=== PATIENT | female | born 1950 | race Caucasian/White ===

== ENCOUNTER 2019-08-20 12:07 | Emergency (ER) | payer MEDICARE, OTHER ==
--- NOTE | 2019-08-20 12:17 | ER Document Report ---
ED Medical Screen (RME) - General Chief Complaint: Shoulder Pain Stated Complaint: FALL/RIGHT SHOULDER INJURY Time Seen by Provider: 08/20/19 12:11 Primary Care Provider: PEDRO MARTINEZ PA-C [Primary Care Provider] - Follow up as needed Mode of Arrival: Ambulatory Information source: Patient Notes: 69-year-old female presents to ED for complaint of right shoulder pain. She states she fell a week ago and she is continued to have pain that is getting worse. She states she was sitting on the toilet and fell into the bathtub last Wednesday. She states she actually fell 3 times last Wednesday from losing her balance. She states she has been unsteady on her feet all week until yesterday. She states she has been too confused to know how to call 911 until yesterday. She states it took her 3 days to figure out how to put a shirt on. She states yesterday she is started being able to walk normal and not as dizzy as she states she is not really sure when she hurt her shoulder. She states she has a history of high blood pressure and cholesterol, hypothyroid diabetes she has had a hysterectomy tonsillectomy and that is while she knows. Patient states she does not smoke drink or use any drugs. I have greeted and performed a rapid initial assessment of this patient. A comprehensive ED assessment and evaluation of the patient, analysis of test resu lts and completion of medical decision making process will be conducted by an additional ED providers. TRAVEL OUTSIDE OF THE [place] IN LAST 30 DAYS: No - Related Data Allergies/Adverse Reactions: No Known Allergies Allergy (Unverified 08/20/19 12:12) Doctor's Discharge - Discharge Referrals: PEDRO MARTINEZ PA-C [Primary Care Provider] - Follow up as needed
--- NOTE | 2019-08-20 12:55 | ER Document Report ---
ED General - General Chief Complaint: Fall Stated Complaint: FALL/RIGHT SHOULDER INJURY Time Seen by Provider: 08/20/19 12:11 Primary Care Provider: PEDRO MARTINEZ PA-C [Primary Care Provider] - Follow up as needed KIKI DANIEL MD [ACTIVE STAFF] - Follow up tomorrow (Concern for rotator cuff injury patient unable to flex shoulder, AP lateral and Y view xr wnl, n/V exam wnl ) Mode of Arrival: Ambulatory TRAVEL OUTSIDE OF THE [place] IN LAST 30 DAYS: No - HPI Notes: 69F presents to ED for increasingly falling in past week, and progressive R shoulder pain 2/2 one fall ~1 w/a while attempting to sit down onto toilet fell off to R hitting RUE on bathtub. In fact, it was that day she was particularly off balance and fell a total 3 times, and now in interim has cont to feel unsteady upon standing like she might topple over, hasn't noticed specific laterality. today and yesterday upright imbalance seems actually much improved. she lives at home by herself for many years, but sister brings her in today s/p finding her fearful of ambulating in her home and more confused than usual, "slow to answer, find her words. pt had told staff she didn't come on her own since she was unsure of how to call 911; sister says, something she would usually have no issue w/. not on any AC/AP meds. R shoulder seems more stiff w/ persistent pain predominantly w/ any movement of R shoulder. denies any distal/other focal neuro deficits. w/ "feeling off balance" denies any double vision, neck or head pain, vomiting, other vision changes, or focal ataxia. She states she has been too confused to know how to call 911 until yesterday. denies urinary or bowel complaints, f/c/s/n/d. - Related Data Allergies/Adverse Reactions: No Known Allergies Allergy (Unverified 08/20/19 12:12) Past Medical History - General Information source: Patient, Relative - sister, but mostely supplied by pt. - Social History Smoking Status: Never Smoker Chew tobacco use (# tins/day): No Frequency of alcohol use: None Drug Abuse: None Lives with: Alone Family History: Reviewed & Not Pertinent Patient has suicidal ideation: No Patient has homicidal ideation: No Review of Systems - Review of Systems Constitutional: No symptoms reported EENT: No symptoms reported. denies: Vertigo Cardiovascular: No symptoms reported. denies: Chest pain, Palpitations, Heart racing, Orthopnea, Dyspnea, Syncope, Dizziness, Lightheaded, Edema, Paroxysmal Nocturnal Dysp Respiratory: No symptoms reported. denies: Cough, Hurts to breathe, Hemoptysis, Short of breath, Wheezing Gastrointestinal: No symptoms reported. denies: Abdominal pain, Diarrhea, Nausea, Vomiting, Constipation, Blood streaked bowels, Poor appetite, Poor fluid intake, Black stools, Rectal bleeding, Fecal incontinence Genitourinary: No symptoms reported Female Genitourinary: No symptoms reported Musculoskeletal: See HPI, Joint pain, Muscle stiffness. denies: Back pain, Neck pain, Deformity, Leg swelling, Ankle swelling Skin: No symptoms reported. denies: Change in color Hematologic/Lymphatic: No symptoms reported Neurological/Psychological: No symptoms reported Physical Exam - Vital signs Vitals: Temp Pulse Resp BP Pulse Ox 97.4 F 86 16 153/93 H 96 08/20/19 12:16 08/20/19 12:16 08/20/19 12:16 08/20/19 12:16 08/20/19 12:16 Interpretation: Normal - General General appearance: Appears well, Alert In distress: None - HEENT Head: Normocephalic, Atraumatic. No: Abrasions, Guerrero's sign, Ecchymosis, Open wounds, Tenderness Eyes: Normal. No: Pale conjunctiva, Periorbital ecchymosis, Periorbital edema, Scleral icterus Conjunctiva: No: Injected Extraocular movements intact: Yes Pupils: PERRL Nerve palsy: No Visual osborne normal: Yes Ears: Normal External canal: Normal Tympanic membrane: Normal. No: Hemotympanum, Perforation Nasal: Normal Mouth/Lips: Normal Mucous membranes: Dry Pharynx: Normal Neck: Normal, Supple. No: Carotid bruit, Lymphadenopathy, Neck mass, Subcutaneous emphysema, Thyromegally - Respiratory Respiratory status: No respiratory distress Chest status: Nontender Breath sounds: Normal Chest palpation: Normal - Cardiovascular Rhythm: Regular Heart sounds: Normal auscultation Murmur: No - Abdominal Inspection: Normal Distension: No distension Bowel sounds: Normal Tenderness: Nontender Organomegaly: No organomegaly - Back Back: Normal, Nontender - Extremities General upper extremity: Normal color General lower extremity: Normal inspection, Nontender, Normal color, Normal ROM, Normal temperature, Normal weight bearing. No: Diamond's sign Shoulder: Limited ROM - no difficulty w/ supination pronation forearm, no ttp wrist, elbow. +ttp overlying anteiror aspect of shoulder joint w/o overlying ksin change or deformity or evicence of trauma. motor & sensory funct intact all dist radial/median/ulnar nn of BUE. ROM of R shoulder limited to ~90 flexion and able to int rotate, and abduct RUE to ~90. difficulty w/ ext rotation shoudler 2/2 pain. no masses/ttp axilla. No: Abrasion, Deformity, Dislocation, Ecchymosis, Instability, Laceration - Neurological Neuro grossly intact: Yes Cognition: Normal. No: Inattentive Orientation: Disoriented to time. No: Disoriented to person, Disoriented to place, Disoriented to events Sweetie Coma Scale Eye Opening: Spontaneous Sweetie Coma Scale Verbal: Oriented [place] Coma Scale Motor: Obeys Commands Sweetie Coma Scale Total: 15 Speech: Normal. No: Dysarthria, Expressive aphasia, Receptive aphasia Cranial nerves: Normal Cerebellar coordination: Finger-nose rhombey - no appendicular ataxia of extremities, and sitting up able to maintain upright posture but needs assistance from sit to stand and then unsteady, (-) romberg, but prefer slightly wider based gait to ambulate and needs more assistance to make turn. no footdrop or any other focal distal neuro strength or gross sensory deficits on all major mm groups tested of BLE Motor strength normal: LUE, RUE, LLE, RLE Sensory: Normal - Psychological Associated symptoms: Normal affect, Normal mood - Skin Skin Temperature: Warm Skin Moisture: Dry Skin Color: Normal Course - Re-evaluation Re-evalutation: reviewed imaging per below w/ sister and patient. reviewed her med list available from chart no extremely hi risk fall meds (e.g. bzd's). vss during ed obs. pt felt more comfortable w/ RUE in sling. i explained that she can be seen [facility]ide[facility]. sister will help call, and I did discuss w/ them she definitely has some evidence of truncal instabilty on exam which makes me worry she may have had one or a few small strokes in deeper part of brain and or cer ebellum. this warrants immediate f/u w/ her pcp to assess risk benefit of secondary prevention, and setting up pt/ot, home health eval. sister and pt prefer this plan as opposed to being admitted and going through these steps, and i do feel reassured that sister fully undrestands the steps above that must be done to make this a possible/safe transition from ED to home. sister agrees to be there 24-7 in meantime and of course understands she's still at high risk of falling again, which pt agrees she'll need to ensure she has help and it's safe before trying to transition/ambulate. we also discussed red flag signs of strokes for which she'd need to return immediately. sister agrees. d/c amb ulatory w/ sister private vehicle. - Vital Signs Vital signs: Temp Pulse Resp BP Pulse Ox 98.5 F 86 18 171/81 H 96 08/20/19 14:01 08/20/19 12:16 08/20/19 17:01 08/20/19 17:01 08/20/19 17:01 - Laboratory Result Diagrams: 08/20/19 13:11 08/20/19 13:11 Laboratory results interpreted by me: 08/20/19 08/20/19 08/20/19 13:11 13:11 13:11 WBC 13.0 H RBC 5.68 H Hgb 16.3 H VBG pH Sodium 136.3 L Potassium 3.4 L Chloride 95 L BUN 21 H Glucose 373 H Alkaline Phosphatase 149 H TSH 45.60 H Urine Glucose (UA) Urine Ketones Urine Blood Leukocyte Esterase Rfl 08/20/19 08/20/19 13:54 14:35 WBC RBC Hgb VBG pH 7.43 H Sodium Potassium Chloride BUN Glucose Alkaline Phosphatase TSH Urine Glucose (UA) >=500 H Urine Ketones 80 H Urine Blood SMALL H Leukocyte Esterase Rfl TRACE H - Diagnostic Test Radiology results interpreted by me: Head CT 08/20/19 00:00 IMPRESSION: 1. Chronic small vessel changes. 2. No acute intracranial abnormality. EVIDENCE OF ACUTE STROKE: NO. Chest X-Ray 08/20/19 12:18 IMPRESSION: NO SIGNIFICANT RADIOGRAPHIC FINDING IN THE CHEST. Shoulder X-Ray 08/20/19 12:20 IMPRESSION: NO RADIOGRAPHIC EVIDENCE OF ACUTE INJURY. Cervical Spine CT 08/20/19 13:41 IMPRESSION: CHRONIC DEGENERATIVE CHANGES. NO ACUTE FINDINGS. Discharge - Discharge Clinical Impression: Fall from or off toilet with subsequent striking against object, initial encounter, Confusion and disorientation, Balance problem, At risk for falling Fall as cause of accidental injury at home as place of occurrence Qualifiers: Encounter type: initial encounter Qualified Code(s): W19.XXXA - Unspecified fall, initial encounter; Y92.009 - Unspecified place in unspecified non- institutional (private) residence as the place of occurrence of the external cause Injury of right rotator cuff Qualifiers: Encounter type: initial encounter Qualified Code(s): S46.001A - Unspecified injury of muscle(s) and tendon(s) of the rotator cuff of right shoulder, initial encounter Condition: Fair Disposition: HOME, SELF-CARE Additional Instructions: Agreed at the time of discharge from the ED that you will be staying if sister's house we will continue to watch make sure he you are not at risk of falling. Please call your primary care doctor first thing tomorrow morning who should evaluate you for your balance, and discuss medication management. I did not restart the medications you have been on since her blood pressure here within normal limits and you have no symptoms. I also gave you a #4 outpatient follow- up with an orthopedic doctor, who can assess and manage rotator cuff injury. You should ask both your primary care doctor and/or the orthopedic doctor regarding initiating re-tab and physical therapy for your shoulder injury as well as soon as possible. I would highly recommend a home health visit and evaluation for PT/OT. I also want you to discuss with your PCP potential stroke risk since I worry your imbalance could be secondary to a small stroke in your cerebellum. Otherwise your physician should consider other reasons for any continuation of being off balance. Specifically you must follow-up with your primary care doctor immediately tomorrow since her glucose was in 300s and I want you to make sure that that is under control with him. Prescriptions: Acetaminophen [Tylenol 325 mg Tablet] 650 mg PO Q6HP 3 Days #30 tablet Referrals: PEDRO MARTINEZ PA-C [Primary Care Provider] - Follow up as needed KIKI DANIEL MD [ACTIVE STAFF] - Follow up tomorrow (Concern for rotator cuff injury patient unable to flex shoulder, AP lateral and Y view xr wnl, n/V exam wnl )
--- NOTE | 2019-08-20 13:06 | RADIOLOGY REPORT (SQ) ---
EXAM DESCRIPTION: CT HEAD WITHOUT COMPLETED DATE/TIME: 08/20/2019 12:57 pm REASON FOR STUDY: CONFUSION SINCE FALL LAST WEEK COMPARISON: None. TECHNIQUE: Axial images acquired through the brain without intravenous contrast. Images reviewed wi th bone, brain and subdural windows. Additional sagittal and coronal reconstructions were generated. Images stored on PACS. All CT scanners at this facility use dose modulation, iterative reconstruction, and/or weight based d osing when appropriate to reduce radiation dose to as low as reasonably achievable (ALARA). [facility]: Dose Right [facility]: CareDose [facility]: Dose Right [facility]: Teradose 4D [facility]: [employer] RADIATION DOSE: mGy. LIMITATIONS: None. FINDINGS: VENTRICLES: Normal size and contour. CEREBRUM: No masses. No hemorrhage. No midline shift. No evidence for acute infarction. Mild patch y white matter low density consistent with small vessel disease. CEREBELLUM: No masses. No hemorrhage. No alteration of density. No evidence for acute infarction. EXTRAAXIAL SPACES: No fluid collections. No masses. ORBITS AND GLOBE: No intra- or extraconal masses. Normal contour of globe without masses. CALVARIUM: No fracture. PARANASAL SINUSES: No fluid or mucosal thickening. SOFT TISSUES: No mass or hematoma. OTHER: No other significant finding. IMPRESSION: 1. Chronic small vessel changes. 2. No acute intracranial abnormality. EVIDENCE OF ACUTE STROKE: NO. COMMENT: Quality ID # [id number]: Final reports with documentation of one or more dose reduction techniques (e.g., Automated exposure control, adjustment of the mA and/or kV according to patient size, use of iterative reconstruction technique) TECHNICAL DOCUMENTATION: JOB ID: [id number] [employer]- All Rights Reserved Reading location - IP/workstation name: [email or web address]
[2019-08-20 13:26] LABS: ABSOLUTE BASOPHILS # (AUTO) 0.1 10^3/uL (0.0-0.2); ABSOLUTE EOSINOPHILS # (AUTO) 0.3 10^3/uL (0.0-0.6); ABSOLUTE LYMPHOCYTES (AUTO) 3.2 10^3/uL (0.5-4.7); ABSOLUTE MONOCYTES (AUTO) 1.3 10^3/uL (0.1-1.4); ABSOLUTE NEUT (AUTO) 8.1 10^3/uL (1.7-8.2); BASOPHILS % (AUTO) 0.9 % (0-2); EOSINOPHILS % (AUTO) 2.2 % (0-6); HEMATOCRIT 46.6 % (36.0-47.0); HEMOGLOBIN 16.3 g/dL (12.0-15.5); LYMPHOCYTES % (AUTO) 24.5 % (13-45); MEAN CORPUSCULAR HEMOGLOBIN 28.7 pg (27.0-33.4); MEAN CORPUSCULAR VOLUME 82 fl (80-97); MONOCYTES % (AUTO) 9.8 % (3-13); PLATELET COUNT 319 10^3/uL (150-450); RED BLOOD COUNT 5.68 10^6/uL (3.72-5.28); RED CELL DISTRIBUTION WIDTH 13.1 % (11.5-14.0); SEGMENTED NEUTROPHILS % (AUTO) 62.6 % (42-78); TOTAL CELLS COUNTED % (AUTO) 100 %
[2019-08-20 13:36] LABS: INTERNATIONAL RATION (INR) 1.03; PROTHROMBIN TIME 13.5 SEC (11.4-15.4)
[2019-08-20 13:44] LABS: ALBUMIN 4.2 g/dL (3.5-5.0); ANION GAP 16 (5-19); BLOOD UREA NITROGEN 21 mg/dL (7-20); CALCIUM 10.2 mg/dL (8.4-10.2); CARBON DIOXIDE 25 mmol/L (22-30); CHLORIDE 95 mmol/L (98-107); GLUCOSE 373 mg/dL (75-110); POTASSIUM 3.4 mmol/L (3.6-5.0); TOTAL PROTEIN 7.2 g/dL (6.3-8.2)
[2019-08-20 13:45] LABS: PARTIAL THROMBOPLASTIN TIME 25.2 SEC (23.5-35.8)
[2019-08-20 13:46] LABS: ALKALINE PHOSPHATASE 149 U/L (38-126); ASPARTATE AMINO TRANSFERASE 18 U/L (14-36); BILIRUBIN,DIRECT 0.4 mg/dL (0.0-0.4); BILIRUBIN,TOTAL 0.8 mg/dL (0.2-1.3); CREATINE KINASE 81 U/L (30-135)
[2019-08-20 13:55] LABS: CREATINE KINASE MB 1.71 ng/mL (<4.55); TROPONIN I < 0.012 ng/mL
--- NOTE | 2019-08-20 13:58 | RADIOLOGY REPORT (SQ) ---
EXAM DESCRIPTION: CHEST 2 VIEWS COMPLETED DATE/TIME: 08/20/2019 1:40 pm REASON FOR STUDY: confusion sinse fall last week COMPARISON: None. TECHNIQUE: Frontal and lateral radiographic views of the chest acquired. NUMBER OF VIEWS: Two view. LIMITATIONS: None. FINDINGS: LUNGS AND PLEURA: No opacities, masses or pneumothorax. No pleural effusion. MEDIASTINUM AND HILAR STRUCTURES: No masses or contour abnormalities. HEART AND VASCULAR STRUCTURES: Heart normal size. No evidence for failure. BONES: No acute findings. HARDWARE: None in the chest. OTHER: No other significant finding. IMPRESSION: NO SIGNIFICANT RADIOGRAPHIC FINDING IN THE CHEST. TECHNICAL DOCUMENTATION: JOB ID: [id number] [employer]- All Rights Reserved Reading location - IP/workstation name: [email or web address]
--- NOTE | 2019-08-20 14:03 | RADIOLOGY REPORT (SQ) ---
EXAM DESCRIPTION: SHOULDER RIGHT 2 OR MORE VIEWS COMPLETED DATE/TIME: 08/20/2019 1:40 pm REASON FOR STUDY: fall pain COMPARISON: None. NUMBER OF VIEWS: Three views. TECHNIQUE: Internal rotation, external rotation, and Y view images acquired of the right shoulder. LIMITATIONS: None. FINDINGS: MINERALIZATION: Normal. BONES: No acute fracture. No worrisome bone lesions. JOINTS: No dislocation. VISUALIZED LUNGS AND RIBS: No pneumothorax. No rib fracture. SOFT TISSUES: No radiopaque foreign body. OTHER: No other significant finding. IMPRESSION: NO RADIOGRAPHIC EVIDENCE OF ACUTE INJURY. TECHNICAL DOCUMENTATION: JOB ID: [id number] [place]-72 2010 [employer]- All Rights Reserved Reading location - IP/workstation name: [email or web address]
[2019-08-20] MEDS ORDERED: ACETAMINOPHEN 325 MG TABLET PO ONE (14:08)
--- NOTE | 2019-08-20 14:08 | RADIOLOGY REPORT (SQ) ---
EXAM DESCRIPTION: CT CERVICAL SPINE WITHOUT COMPLETED DATE/TIME: 08/20/2019 1:56 pm REASON FOR STUDY: ttp c7 neck pain COMPARISON: None. TECHNIQUE: Axial images acquired through the cervical spine without intravenous contrast. Images re viewed with lung, soft tissue and bone windows. Reconstructed coronal and sagittal MPR images review ed. Images stored on PACS. All CT scanners at this facility use dose modulation, iterative reconstruction, and/or weight based d osing when appropriate to reduce radiation dose to as low as reasonably achievable (ALARA). [facility]: Dose Right [facility]: CareDose [facility]: Dose Right [facility]: Teradose 4D [facility]: [employer] RADIATION DOSE: CT Rad equipment meets quality standard of care and radiation dose reduction techniq ues were employed. CTDIvol: 15.5 mGy. DLP: 337 mGy-cm. mGy. LIMITATIONS: None. FINDINGS: ALIGNMENT: Anatomic. MINERALIZATION: Normal. VERTEBRAL BODIES: No fractures or dislocation. DISCS: Multilevel disc space narrowing with osteophytes. FACETS, LATERAL MASSES, POSTERIOR ELEMENTS: Facet arthropathy. No fractures. No dislocation. No ac miguelangel findings. HARDWARE: None in the spine. VISUALIZED RIBS: No fractures. LUNG APICES AND SOFT TISSUES: No significant or acute findings. OTHER: No other significant finding. IMPRESSION: CHRONIC DEGENERATIVE CHANGES. NO ACUTE FINDINGS. TECHNICAL DOCUMENTATION: JOB ID: [id number] [place]-72 Quality ID # [id number]: Final reports with documentation of one or more dose reduction techniques (e.g., Au tomated exposure control, adjustment of the mA and/or kV according to patient size, use of iterative reconstruction technique) 2010 [employer]- All Rights Reserved Reading location - IP/workstation name: [email or web address]
[2019-08-20 14:17] LABS: APPEARANCE,URINE SLIGHTLY-CLOUDY; BILIRUBIN,URINE NEGATIVE (NEGATIVE); COLOR,URINE YELLOW; GLUCOSE, URINE >=500 mg/dL (NEGATIVE); KETONES,URINE 80 mg/dL (NEGATIVE); PROTEIN,URINE NEGATIVE (NEGATIVE); URINE SPECIFIC GRAVITY 1.031; UROBILINOGEN,URINE NEGATIVE mg/dL (<2.0)
[2019-08-20 14:21] LABS: AMORPHOUS SEDIMENT,URINE TRACE /HPF
[2019-08-20] MEDS ORDERED: RINGERS SOLUTION,LACTATED 1,000 ML IV ONE (14:29)
[2019-08-20 14:43] LABS: VENOUS BLOOD BASE EXCESS 1.2 mmol/L; VENOUS BLOOD HCO3 25.5 mmol/L (20-32); VENOUS BLOOD PCO2 39.4 mmHg (35-63); VENOUS BLOOD PH 7.43 (7.30-7.42)
--- NOTE | 2019-08-20 16:36 | EKG REPORT ---
SEVERITY:- ABNORMAL ECG - SINUS RHYTHM LEFT AXIS DEVIATION REPOL ABNRM SUGGESTS ISCHEMIA, ANT-LAT LEADS : Confirmed by: Deven Hall MD 20-Aug-2019 16:35:46
--- NOTE | 2019-08-20 16:36 | EKG REPORT ---
SEVERITY:- ABNORMAL ECG - SINUS RHYTHM INFERIOR INFARCT, AGE INDETERMINATE NONSPECIFIC T ABNORMALITIES, ANT-LAT LEADS : Confirmed by: Deven Hall MD 20-Aug-2019 16:36:00
[2019-08-20 17:11] VITALS: BP 171/81
== END 2019-08-20 17:11 | disposition home or self-care (01) ==
LOC: ER 12:07
DX: S46.001A Unspecified injury of muscle(s) and tendon(s) of the rotator cuff of right shoulder, initial encounter (principal); R41.0 Disorientation, unspecified; W18.11XA Fall from or off toilet without subsequent striking against object, initial encounter; Z91.81 History of falling
CPT/HCPCS: 93005; 99284; 96360; 36415; 87086; 82553; 82550; 83690; 84443; 85025; 85610; 85730; 87088; 80053; 81001; 84484; 82803; 71046; 73030; 70450; 72125; 93010; L3650; A9270; J7120